=== PATIENT | male | born 1990 ===

== ENCOUNTER 2021-06-20 04:27 | Emergency (ER) | payer MEDICAID ==
[~2021-06-20] VITALS: Ht 177.8 cm; Wt 70.0 kg
[2021-06-20 04:29] VITALS: BP 142/88
[2021-06-20] MEDS ORDERED: ONDANSETRON ODT 4 MG ONE (04:37)
[2021-06-20] MEDS ORDERED: ONDANSETRON ODT 4 MG PO ONE (06:00)
== END 2021-06-20 05:50 | disposition left against medical advice (07) ==
LOC: ED 05:48
DX: R11.2 Nausea with vomiting, unspecified (principal); Z53.21 Procedure and treatment not carried out due to patient leaving prior to being seen by health care provider